=== PATIENT | female | born 1995 | race Caucasian/White ===

== ENCOUNTER 2017-02-06 21:32 | Inpatient (IN) | payer BC ==
[~2017-02-06] VITALS: Ht 154.9 cm; Wt 55.3 kg
--- NOTE | ~2017-02-06 | OR ---
Unit #: [id number] #: [id number] Patient: ASHLEY RENDON [id number] [address] [place], [place] [address] [id number] I MR#: [id number] NAME: ASHLEY RENDON ROOM: 462 Date of Procedure: 02/08/2017 Admission Date: 02/07/2017 Surgeon: Lenny Griffith M.D. : 1995 Attending Physician: Clint Avila III, M.D. Primary Care Physician: Primary Care Physician No OPERATIVE REPORT PROCEDURE PERFORMED Esophagogastroduodenoscopy to descending duodenum, endoscopic retrograde cholangiopancreatography with sphincterotomy, balloon extraction of common bile duct stones as well as stenting of common bile duct. INDICATIONS FOR PROCEDURE Ms. Rendon presented with severe biliary colic. She has had similar episodes 4 to 5 times over last 3 months. Her LFTs were significantly abnormal with the direct bilirubinemia and AST and ALT elevation suggestive of common bile duct stones and obstruction. Her CT and ultrasound showed gallbladder stones, but no common bile duct stones. She is undergoing evaluation with upper endoscopy and ERCP. MEDICATIONS Monitored anesthesia. POSTOPERATIVE FINDINGS 1. EGD exam shows mild gastritis. 2. Common bile duct minimally dilated at 10 mm. Several small filling defects seen. 3. Sphincterotomy was performed. 4. Balloon extraction of multiple small stones. They were all less than 5 mm carried out. 5. 7 x 7 stent placed to ensure drainage. 6. Cystic duct was patent along with filling of gallbladder with filling defects suggestive of stones. 7. PD was not injected. PLAN The patient to have laparoscopic cholecystectomy. She will need a repeat evaluation and stent removal after 6 weeks. DESCRIPTION OF PROCEDURE The patient was explained of the procedure, risks, and benefits along with risks and benefits of anesthesia. She was brought to the endoscopy room. Risk of pancreatitis was discussed in detail. She was laid in the prone position. EGD was done first. Scope was passed down the mouth into the esophagus, stomach, duodenum, and distal duodenum. Findings as described. Gently, the scope was pulled out. At this time, we placed a side-viewing scope down the mouth into Unit #: [id number] #: [id number] Patient: ASHLEY RENDON esophagus, stomach, duodenum, and distal duodenum. Ampulla was normal in appearance. After a couple of attempts, I was able to cannulate the common bile duct selectively. Findings have been described above. Small sphincterotomy was made. Balloon extraction was then carried out. Several small stones were extracted. A 7 x 7 stent was then placed across the duct to ensure drainage. PD was not injected. The stomach was decompressed. The scope was gently pulled out. She tolerated it well. Dictated by... Aldair Miller/jyoti TD: 02/08/2017 18:40 JOB #: [id number] CC: Stepan Rome Jr, M.D. OPERATIVE REPORT Page 1 of 1 X Lenny Griffith MD X PROCEDURE OPERATIVE NOTE
--- NOTE | ~2017-02-06 | CT2 ---
[facility] A Service of [facility] RADIOLOGY TEXT RESULTS PATIENT: ASHLEY TEJADA LOCATION: [facility] : [birth year] UNIT #: [id number] AGE: [address]: Clint Avila III, MD SEX: F ORDER DR: [id number] [address] [address] [id number] I MR#: [id number] Acc #: [id number] NAME: ASHLEY TEJADA : 1995 SEX: F STUDY DATE/TIME: 02/07/2017 1:05 UNIT: SEDOF ROOM: [id number] STUDY DESCRIPTION: CT Abd and Pelv W Cont Attending Physician: Clint Avila III, M.D. Ordering Physician: Rafiq Sanchez M.D. Primary Care Physician: No Primary Care Physician MEDICAL IMAGING REPORT This report is preliminary unless electronic signature is present. EXAM CT abdomen and pelvis with contrast, 02/07/2017. HISTORY 21-year-old female in the ED complaining of new onset epigastric pain, upper abdominal pain and upper back pain beginning earlier today. Some vomiting. TECHNIQUE CT examination of the abdomen and pelvis was performed with oral and IV contrast. The patient could consume very little oral contrast due to vomiting. This CT exam was performed with one or more of the following radiation dose reduction techniques: automatic exposure control, adjustment of mA and/or kV according to patient size, and iterative reconstruction. FINDINGS Abdomen findings: The gallbladder wall appears mildly thickened. The gallbladder is nondistended, there is no bile duct dilatation. Liver, pancreas and spleen are normal in size and appearance. Both kidneys are negative with no evidence of urinary obstruction. Small bowel and colon are normal in caliber and appearance. The cecum is positioned in the right mid pelvis, the appendix is not visible. There is no indirect CT evidence of acute appendicitis. Pelvis findings: Uterus, ovaries, bladder and rectum are within normal limits. IMPRESSION 1. Mild wall thickening involving nondistended gallbladder. No bile duct dilatation. [facility] A Service of [facility] RADIOLOGY TEXT RESULTS PATIENT: ASHLEY TEJADA LOCATION: [facility] 462-01 : [birth year] UNIT #: [id number] AGE: [address]: Clint Avila III, MD SEX: F ORDER DR: 2. CT examination of the abdomen and pelvis is otherwise negative. Dictated by... Nitin Kim M.D. THIS IS AN ELECTRONICALLY VERIFIED REPORT Nitin Kim M.D. at 02/07/2017 9:57 PM RGW/gz TD: 02/07/2017 10:24 JOB #: [id number] MEDICAL IMAGING REPORT Page 1 of 1
--- NOTE | ~2017-02-06 | HP ---
Unit #: [id number] #: [id number] Patient: ASHLEY TEJADA [id number] [address] [address] [id number] I MR#: [id number] NAME: ASHLEY TEJADA ROOM: 462 Age: 21 Sex: F Admission Date: 02/07/2017 : 1995 Attending Physician: Clint Avila III, M.D. Primary Care Physician: Primary Care Physician No HISTORY AND PHYSICAL CHIEF COMPLAINT Chest pain with mid epigastric abdominal pain, nausea, and vomiting. HISTORY OF PRESENT ILLNESS The patient is a 21-year-old white female, who is 3 months , who has been having intermittent attacks since her delivery of chest pains as well as mid epigastric abdominal pain. She has had at least 5 attacks and presented to the emergency room last evening with this complaint. She has also had as noted above some nausea and vomiting, but no significant fever or chills and no diarrhea or constipation. She had no apparent problems related to her delivery of her baby 3 months ago. She denies any significant fatty food intolerance. She has had no history of jaundice, hepatitis, pancreatitis, or peptic ulcer disease. PAST MEDICAL HISTORY Serious illnesses; none. PAST SURGICAL HISTORY None in the past. MEDICATIONS She has been on control pills. ALLERGIES She is allergic to gold. TRANSFUSIONS None in the past. FAMILY HISTORY Noncontributory. SOCIAL HISTORY The patient is . Lives at home with family. Has normal good appetite. No recent weight change. She is nonsmoker and nondrinker. She is presently unemployed. IMMUNIZATIONS Up to date. REVIEW OF SYSTEMS Ten system review has been performed, which is not remarkable except for that noted in the present illness. Unit #: [id number] #: [id number] Patient: ASHLEY TEJADA PHYSICAL EXAMINATION VITAL SIGNS: Temperature on admission 98.2, pulse 86, respirations 18, blood pressure 119/78. GENERAL DESCRIPTION: The patient is well-developed thin 21-year-old white female, in no acute distress. HEENT: Not remarkable. Sclerae are anicteric. NECK: Supple. CHEST: There is equal bilateral expansion with bilateral equal breath sounds. LUNGS: Clear bilaterally. HEART: Regular rhythm. No murmurs or gallops. There is no evidence of cardiomegaly clinically. ABDOMEN: Soft, minimally tender in the midepigastrium without mass or organomegaly. There is no gross abdominal distention. No guarding or rebound. Active bowel sounds present. No evidence of ascites or hernias. EXTREMITIES: Full range of motion without limitation. There is no evidence of peripheral edema. BACK: No CVA tenderness. NEUROLOGIC: Grossly intact. DIAGNOSTIC STUDIES LABORATORY RESULTS: Her chemistry is normal except for a total bilirubin of 2.6 with AST of 429, ALT 639, and alkaline phosphatase 123 with a lipase 144. Her CBC reveals evidence of normal white count of 5300 with a hemoglobin of 13.2, normal platelets. Urinalysis except for showing 1+ ketones is not remarkable. IMAGING STUDIES: She has had no radiologic workup. IMPRESSION The patient likely has a common duct stone with chronic cholecystitis and cholelithiasis . PLAN The plan will be to have Gastroenterology see her for possible ERCP or possibly an MRCP and obtained an ultrasound of the gallbladder to rule out gallstones. For now, she would be kept on IV antibiotics as well. Dictated by Stepan Rome Jr., MErik RUIZ/jyoti TD: 02/07/2017 13:56 JOB #: [id number] HISTORY AND PHYSICAL Page 1 of 1 X Stepan Rome MD X HISTORY AND PHYSICAL
--- NOTE | ~2017-02-06 | OR ---
Unit #: [id number] #: [id number] Patient: ASHLEY TEJADA [id number] [address] [address] [id number] I MR#: [id number] NAME: ASHLEY TEJADA ROOM: 462 Date of Procedure: 02/09/2017 Admission Date: 02/07/2017 Surgeon: Wilton Dickens M.D. : 1995 Attending Physician: Clint Avila III, M.D. OPERATIVE REPORT PREOPERATIVE DIAGNOSIS Cholecystitis. POSTOPERATIVE DIAGNOSIS Cholecystitis. PROCEDURE PERFORMED Laparoscopic cholecystectomy. COOK PRESSURE None. ANESTHESIA General. ESTIMATED BLOOD LOSS Minimal. IV FLUIDS 800 crystalloid. COMPLICATIONS None. INDICATIONS FOR PROCEDURE The patient is a 21-year-old who presented with common duct stone. She underwent ERCP and clearance of her ducts, who now presents for laparoscopic cholecystectomy. DESCRIPTION OF PROCEDURE The patient was taken to the operating theater and placed in supine position. General anesthesia was induced. The abdomen was prepped and draped. A 5-mm Optiview trocar was placed in the right upper quadrant without difficulty. The abdomen was insufflated to 15 mmHg with CO2. Under direct vision, I placed a subxiphoid 10 mm, right lateral 5 mm, umbilical 5 mm. General inspection of the abdomen revealed distended gallbladder, but no gross inflammation. The gallbladder was retracted up over the liver. We dissected the neck of the gallbladder and identified the cystic duct. Its junction with the common duct as well as the gallbladder was identified. It was thus skeletonized, doubly hemoclipped, and divided. The cystic artery laid immediately posterior. This was skeletonized, doubly hemoclipped, and divided. The gallbladder was Unit #: [id number] #: [id number] Patient: ASHLEY TEJADA removed from the gallbladder bed with Bovie electrocautery and delivered via the subxiphoid port. Hemostasis was adequate. I irrigated with normal saline and aspirated all fluids dry. The ports were removed and the wound was closed with 4-0 Vicryl. The patient tolerated the procedure well and sent to recovery room in good condition. Dictated by... Aldair Fraga/jyoti TD: 02/10/2017 05:09 JOB #: [id number] OPERATIVE REPORT Page 1 of 1 X Wilton Dickens MD PROCEDURE OPERATIVE NOTE
--- NOTE | ~2017-02-06 | CR72 ---
[facility]. [facility] A Service of [facility] RADIOLOGY TEXT RESULTS PATIENT: ASHLEY TEJADA LOCATION: [facility] : 95 UNIT #: [id number] AGE: [address]: Clint Avila III, MD SEX: F ORDER DR: [id number] [address] [address] [id number] I MR#: [id number] Acc #: [id number] NAME: ASHLEY TEJADA : 1995 SEX: F STUDY DATE/TIME: 02/06/2017 21:59 UNIT: SEDOF ROOM: [facility] STUDY DESCRIPTION: CR Chest Single View Portable Attending Physician: Clint Avila III, M.D. Ordering Physician: Rafiq Sanchez M.D. Primary Care Physician: No Primary Care Physician MEDICAL IMAGING REPORT This report is preliminary unless electronic signature is present. EXAM Frontal chest 02/06/2017. INDICATIONS Left-sided chest pain in a 21-year-old female. Symptoms began last night. TECHNIQUE Frontal chest. COMPARISON No comparisons. FINDINGS The cardiac silhouette unremarkable. Vascularity is normal. Lungs clear. No effusion or pneumothorax. IMPRESSION 1. Negative chest. We have no comparisons. Dictated by... Jefferson Tabor M.D. THIS IS AN ELECTRONICALLY VERIFIED REPORT Jefferson Tabor M.D. at 02/07/2017 2:17 PM LB/isabell TD: 02/07/2017 09:34 JOB #: [id number] MEDICAL IMAGING REPORT Page 1 of 1
--- NOTE | ~2017-02-06 | CR84 ---
[facility] A Service of [facility] & [facility] RADIOLOGY TEXT RESULTS PATIENT: ASHLEY TEJADA LOCATION: [facility] 462-01 : 95 UNIT #: [id number] AGE: [address]: Clint Avila III, MD SEX: F ORDER DR: [id number] [facility] [address] [place], [place] [address] [id number] I MR#: [id number] Acc #: [id number] NAME: ASHLEY TEJADA : 1995 SEX: F STUDY DATE/TIME: 02/08/2017 8:52 UNIT: [facility] ROOM: [facility] STUDY DESCRIPTION: CR ERCP Biliary and Pancr SI Attending Physician: Clint Avila III, M.D. Ordering Physician: Lenny Griffith M.D. Primary Care Physician: No Primary Care Physician MEDICAL IMAGING REPORT This report is preliminary unless electronic signature is present EXAM ERCP, 02/08/2017. HISTORY Abnormally elevated liver enzymes. Biliary colic. New onset epigastric abdominal pain, upper abdominal pain, and upper back pain beginning 02/07/2017 with vomiting, gallstones. Questionable common bile duct stone. FINDINGS ERCP was performed by Dr. Griffith. Five spot film radiographs of the upper abdomen were obtained and 3.03 minutes of fluoroscopy time was utilized. The pancreatic duct was not injected. Contrast injection of the biliary tree showed dilatation of the common duct at 10 mm. Filling defects were seen in the duct characteristic of stones. Sphincterotomy was performed by Dr. Griffith. Balloon catheter was used to remove small stones from the common duct. A 7-Tuvaluan 7 cm stent was then placed in the common bile duct. Dictated by... Tr Rossi M.D. THIS IS AN ELECTRONICALLY VERIFIED REPORT Tr Rossi M.D. at 02/08/2017 4:54 PM ZULMA/willie TD: 02/08/2017 16:44 JOB #: [id number] MEDICAL IMAGING REPORT Page 1 of 1 COPY
--- NOTE | ~2017-02-06 | EKG ---
PATIENT: ASHLEY TEJADA UNIT #: [id number] Ventricular Rate: 81 BPM Atrial Rate: 81 BPM P-R Interval: 110 ms QRS Duration: 82 ms Q-T Interval: 348 ms QTC Calculation(Bezet): 404 ms P Chicken: 58 degrees Calculated R Chicken: 93 degrees Calculated T Chicken: 50 degrees Diagnosis Line: Sinus rhythm with short NH Diagnosis Line: Rightward axis Diagnosis Line: Borderline ECG Diagnosis Line: No previous ECGs available Diagnosis Line: Confirmed by MELANIE RIVAS MD ([id number]) on Diagnosis Line: 02/07/2017 8:52:46 PM INTERPRETING MD: EVELYN PERRY
--- NOTE | ~2017-02-06 | US6 ---
[facility] A Service of [facility] & [facility] RADIOLOGY TEXT RESULTS PATIENT: ASHLEY TEJADA LOCATION: [facility] 462-01 : [birth year] UNIT #: [id number] AGE: [address]: Clint Avila III, MD SEX: F ORDER DR: [id number] [facility] [address]. [place], [place] [address] [id number] I MR#: [id number] Acc #: [id number] NAME: ASHLEY TEJADA : 1995 SEX: F STUDY DATE/TIME: 02/07/2017 8:06 UNIT: [facility] ROOM: 2 STUDY DESCRIPTION: US Abdominal Limited Attending Physician: Clint Avila III, M.D. Ordering Physician: Clint Avila III, M.D. Primary Care Physician: Primary Care Physician No MEDICAL IMAGING REPORT This report is preliminary unless electronic signature is present EXAM Right upper quadrant ultrasound 02/07/2017 HISTORY Right upper quadrant abdominal pain for 4 months and hyperlipidemia. FINDINGS The liver is homogeneous in echotexture and demonstrates no cystic or solid mass lesions. The intra and extrahepatic bile ducts are not dilated. The gallbladder contains multiple shadowing gallstones but there is no evidence of gallbladder wall thickening or pericholecystic fluid. The common duct measures 6 mm. The pancreas and right kidney are normal. IMPRESSION Cholelithiasis Dictated by... Tr Rossi M.D. THIS IS AN ELECTRONICALLY VERIFIED REPORT Tr Rossi M.D. at 02/08/2017 7:18 AM ZULMA/rahat TD: 02/07/2017 17:50 JOB #: [id number] MEDICAL IMAGING REPORT Page 1 of 1 COPY
--- NOTE | ~2017-02-06 | DS ---
Unit #: [id number] #: [id number] Patient: ASHLEY TEJADA [id number] [address] [address] [id number] I MR#: [id number] NAME: ASHLEY TEJADA ROOM: 462 Age: 21 Sex: F Admission Date: 02/07/2017 : 1995 Discharge Date: 02/10/2017 Attending Physician: Clint Avila III, M.D. Primary Care Physician: Georgina Primary Care Physician DISCHARGE SUMMARY DIAGNOSIS 1. Choledocholithiasis. 2. Cholecystitis. PROCEDURES 1. ERCP with common duct stone extraction. 2. Laparoscopic cholecystectomy. HOSPITAL COURSE The patient is a 21-year-old lady who presents with common bile duct stones, as well as cholecystitis. She underwent ERCP and successfully cleared her common bile duct. She then underwent laparoscopic cholecystectomy. Postop course uncomplicated. DISPOSITION Patient will be discharged home in good condition. She should follow a regular diet as tolerated. ACTIVITY LEVEL Was discussed. FOLLOWUP With Dr. Dickens in two weeks. MEDICATIONS 1. Regular home medication. 2. Stonewall 7.5 mg q.4 p.r.n. Dictated by... Aldair Fraga/africa TD: 02/11/2017 10:09 JOB #: [id number] Unit #: [id number] #: [id number] Patient: ASHLEY TEJADA DISCHARGE SUMMARY Page 1 of 1 X Wilton Dickens MD X DISCHARGE SUMMARY
[2017-02-06] MEDS ORDERED: BIRTH CONTROL PILL (21:47)
[2017-02-06 22:26] LABS: BASOPHIL% 0.5 % (0-2.5); EOSINOPHIL# 0.1 X10e3 (0-0.7); EOSINOPHIL% 2.1 % (0.0-7.0); HEMATOCRIT 38.5 % (35.0-45.0); HEMOGLOBIN 13.2 gm/dL (12.0-16.0); LYMPHOCYTE% 38.4 % (17.0-45.0); MEAN CORPUSCULAR HEMOGLOBIN 30.5 PG (28-34); MEAN CORPUSCULAR HGB CONC 34.3 g/dL (30-36); MEAN PLATELET VOLUME 8.2 FL (6.5-11.5); MONOCYTE# 0.3 X10e3 (0-1.0); MONOCYTE% 6.3 % (3.0-12.0); NEUTROPHIL# 2.8 X10e3 (1.5-7.1); NEUTROPHIL% 52.7 % (40-75); PLATELET COUNT 284 X10e3 (140-420); RED BLOOD COUNT 4.33 X10e (3.90-5.30); RED CELL DISTRIBUTION WIDTH 13.4 % (11.0-15.5); WHITE BLOOD COUNT 5.3 X10e3 (4.0-10.5)
[2017-02-06 22:28] LABS: DIFF IND NO
[2017-02-06 22:37] LABS: INR 1.1; PROTHROMBIN TIME (PATIENT) 11.9 SECONDS (9.5-12.4)
[2017-02-06 22:45] LABS: PARTIAL THROMBOPLASTIN TIME 25.4 SECONDS (25.6-38.1)
[2017-02-06 22:50] LABS: ALBUMIN SERUM 4.4 g/dL (3.5-5.0); BILIRUBIN, DIRECT 0.8 mg/dL (0.0-0.2); BILIRUBIN,INDIRECT 1.8 mg/dL (0.0-0.9); BILIRUBIN,TOTAL 2.6 mg/dL (0.2-2.0); CALCIUM SERUM 9.3 mg/dL (8.4-10.2); CREATININE SERUM 0.6 mg/dL (0.6-1.4); GLOM FILT RATE Estimated 130.3 mL/min (>60); POTASSIUM 3.7 mmol/L (3.5-5.1); PROTEIN TOTAL SERUM 7.6 g/dL (6.0-8.3)
[2017-02-07 02:44] LABS: URINE SOURCE CLEAN CATCH
[2017-02-07 02:47] LABS: URINE APPEARANCE CLEAR; URINE BLOOD NEG (NEG); URINE COLOR ORANGE; URINE GLUCOSE NEG (NORM); URINE KETONE 1+ (NEG); URINE LEUKOCYTE ESTERASE NEG (NEG); URINE NITRATE NEG (NEG); URINE PH 7.5 (5-8); URINE PROTEIN NEG (NEG); URINE SPECIFIC GRAVITY <=1.005 (1.003-1.035)
[2017-02-07 02:50] LABS: URINE BILIRUBIN NEG (NEG)
[2017-02-07 02:51] LABS: MICRO INDICATED? NO
[2017-02-07] MEDS ORDERED: BIRTH CONTROL PILL PO (06:23)
[2017-02-07 06:52] LABS: BASOPHIL# 0.1 X10e3 (0-0.3); BASOPHIL% 1.2 % (0-2.5); EOSINOPHIL# 0.1 X10e3 (0-0.7); EOSINOPHIL% 1.8 % (0.0-7.0); HEMATOCRIT 37.7 % (35.0-45.0); HEMOGLOBIN 12.8 gm/dL (12.0-16.0); LYMPHOCYTE# 2.1 X10e3 (1.0-3.5); LYMPHOCYTE% 39.5 % (17.0-45.0); MEAN CELL VOLUME 88.9 FL (83-96); MEAN CORPUSCULAR HEMOGLOBIN 30.1 PG (28-34); MEAN CORPUSCULAR HGB CONC 33.8 g/dL (30-36); MONOCYTE# 0.4 X10e3 (0-1.0); NEUTROPHIL# 2.6 X10e3 (1.5-7.1); NEUTROPHIL% 50.5 % (40-75); PLATELET COUNT 285 X10e3 (140-420); RED BLOOD COUNT 4.25 X10e (3.90-5.30); RED CELL DISTRIBUTION WIDTH 13.5 % (11.0-15.5); WHITE BLOOD COUNT 5.2 X10e3 (4.0-10.5)
[2017-02-07 06:59] LABS: DIFF IND NO
[2017-02-07 07:24] LABS: ALBUMIN SERUM 4.1 g/dL (3.5-5.0); BILIRUBIN,TOTAL 3.3 mg/dL (0.2-2.0); BUN/CREATININE RATIO 13.33; CALCIUM SERUM 9.2 mg/dL (8.4-10.2); CREATININE SERUM 0.6 mg/dL (0.6-1.4); GLOM FILT RATE Estimated 130.3 mL/min (>60); PROTEIN TOTAL SERUM 7.1 g/dL (6.0-8.3)
[2017-02-07 15:05] LABS: POC - CKMB <1.0 ng/mL (0.0-7.9)
[2017-02-07 15:06] LABS: POC - TROPONIN <0.05 ng/mL (<=0.05)
[2017-02-08 02:19] LABS: BASOPHIL% 1.1 % (0-2.5); EOSINOPHIL# 0.2 X10e3 (0-0.7); EOSINOPHIL% 3.6 % (0.0-7.0); HEMATOCRIT 35.5 % (35.0-45.0); HEMOGLOBIN 11.9 gm/dL (12.0-16.0); LYMPHOCYTE# 1.9 X10e3 (1.0-3.5); LYMPHOCYTE% 41.1 % (17.0-45.0); MEAN CELL VOLUME 90.1 FL (83-96); MEAN CORPUSCULAR HEMOGLOBIN 30.1 PG (28-34); MEAN CORPUSCULAR HGB CONC 33.4 g/dL (30-36); MEAN PLATELET VOLUME 8.2 FL (6.5-11.5); MONOCYTE# 0.3 X10e3 (0-1.0); MONOCYTE% 7.4 % (3.0-12.0); NEUTROPHIL# 2.2 X10e3 (1.5-7.1); NEUTROPHIL% 46.8 % (40-75); PLATELET COUNT 243 X10e3 (140-420); RED BLOOD COUNT 3.94 X10e (3.90-5.30); RED CELL DISTRIBUTION WIDTH 13.3 % (11.0-15.5); WHITE BLOOD COUNT 4.7 X10e3 (4.0-10.5)
[2017-02-08 02:23] LABS: DIFF IND NO
[2017-02-08 02:42] LABS: ALBUMIN SERUM 3.4 g/dL (3.5-5.0); BILIRUBIN,TOTAL 2.6 mg/dL (0.2-2.0); BUN/CREATININE RATIO 11.66; CALCIUM SERUM 8.7 mg/dL (8.4-10.2); CREATININE SERUM 0.6 mg/dL (0.6-1.4); GLOM FILT RATE Estimated 130.3 mL/min (>60); PROTEIN TOTAL SERUM 6.2 g/dL (6.0-8.3)
[2017-02-09 03:17] LABS: HEMATOCRIT 35.1 % (35.0-45.0); HEMOGLOBIN 11.7 gm/dL (12.0-16.0); MEAN CELL VOLUME 89.5 FL (83-96); MEAN CORPUSCULAR HEMOGLOBIN 29.9 PG (28-34); MEAN CORPUSCULAR HGB CONC 33.4 g/dL (30-36); MEAN PLATELET VOLUME 8.1 FL (6.5-11.5); RED BLOOD COUNT 3.93 X10e (3.90-5.30); RED CELL DISTRIBUTION WIDTH 13.2 % (11.0-15.5)
[2017-02-09 04:29] LABS: ALBUMIN SERUM 3.3 g/dL (3.5-5.0); ALKALINE PHOSPHATASE 92 U/L (32-92); ALT (SGPT) 260 U/L (10-40); AMYLASE 2111 U/L (0-46); AST (SGOT) 71 U/L (10-42); BILIRUBIN,TOTAL 0.9 mg/dL (0.2-2.0); BLOOD UREA NITROGEN <5 mg/dL (9-23); BUN/CREATININE RATIO 7.14; CALCIUM SERUM 8.6 mg/dL (8.4-10.2); CARBON DIOXIDE 30 mmol/L (22-31); CHLORIDE 103 mmol/L (100-111); CREATININE SERUM 0.7 mg/dL (0.6-1.4); GLOM FILT RATE Estimated 123.9 mL/min (>60); GLUCOSE FASTING 112 mg/dL (70-110); LIPASE 2583 U/L (22-51); POTASSIUM 3.5 mmol/L (3.5-5.1); PROTEIN TOTAL SERUM 5.9 g/dL (6.0-8.3); SODIUM 139 mmol/L (135-145)
[2017-02-10 02:53] LABS: BASOPHIL% 0.5 % (0-2.5); DIFF IND NO; EOSINOPHIL# 0.1 X10e3 (0-0.7); EOSINOPHIL% 1.8 % (0.0-7.0); HEMATOCRIT 34.6 % (35.0-45.0); HEMOGLOBIN 11.5 gm/dL (12.0-16.0); LYMPHOCYTE# 1.9 X10e3 (1.0-3.5); LYMPHOCYTE% 41.3 % (17.0-45.0); MEAN CELL VOLUME 89.3 FL (83-96); MEAN CORPUSCULAR HEMOGLOBIN 29.7 PG (28-34); MEAN CORPUSCULAR HGB CONC 33.3 g/dL (30-36); MEAN PLATELET VOLUME 8.4 FL (6.5-11.5); MONOCYTE# 0.3 X10e3 (0-1.0); NEUTROPHIL# 2.2 X10e3 (1.5-7.1); NEUTROPHIL% 49.4 % (40-75); PLATELET COUNT 259 X10e3 (140-420); RED BLOOD COUNT 3.87 X10e (3.90-5.30); WHITE BLOOD COUNT 4.5 X10e3 (4.0-10.5)
[2017-02-10 03:18] LABS: ALBUMIN SERUM 3.2 g/dL (3.5-5.0); ALKALINE PHOSPHATASE 89 U/L (32-92); ALT (SGPT) 194 U/L (10-40); AST (SGOT) 50 U/L (10-42); BILIRUBIN,TOTAL 0.7 mg/dL (0.2-2.0); CALCIUM SERUM 8.6 mg/dL (8.4-10.2); CARBON DIOXIDE 30 mmol/L (22-31); CHLORIDE 100 mmol/L (100-111); CREATININE SERUM 0.7 mg/dL (0.6-1.4); GLOM FILT RATE Estimated 123.9 mL/min (>60); GLUCOSE FASTING 108 mg/dL (70-110); POTASSIUM 3.5 mmol/L (3.5-5.1); SODIUM 137 mmol/L (135-145)
[2017-02-10 03:19] LABS: BLOOD UREA NITROGEN <5 mg/dL (9-23); BUN/CREATININE RATIO 7.14
[2017-02-10] MEDS ORDERED: HYDROCODON-ACE1 EAC9 PO (08:53)
== END 2017-02-10 09:50 | disposition home or self-care (01) | DRG 419 ==
LOC: SED 21:32 → C4C 02-07 02:20 → SEDOF 02-07 02:20 → SED 02-07 02:30 → SEDOF 02-07 02:30 → C4C 02-07 05:42 → SEDOF 02-07 05:42 → C4C 02-07 05:42
PROVIDERS: Emergency Medicine; Internal Medicine; Surgery
PROC: 0FC98ZZ Extirpation of Matter from Common Bile Duct, Via Natural or Artificial Opening Endoscopic (ICD-10-PCS; principal; 2017-02-08 09:30)
PROC: 0F798DZ Dilation of Common Bile Duct with Intraluminal Device, Via Natural or Artificial Opening Endoscopic (ICD-10-PCS; 2017-02-08 09:30)
PROC: 0FT44ZZ Resection of Gallbladder, Percutaneous Endoscopic Approach (ICD-10-PCS; 2017-02-09)
DX: K80.44 Calculus of bile duct with chronic cholecystitis without obstruction (principal); Z91.048 Other nonmedicinal substance allergy status
CPT/HCPCS: 36415; 71010; 74177; 74330; 76705; 80048; 80053; 80076; 81003; 82150; 82553; 82947; 83690; 84484; 84703; 85025; 85027; 85610; 85730; 88304; 93005; 96374; 96375; 99285; J1170; J1885; J2250; J2270; J2405; J2550; J2710; J3010; Q9967